=== PATIENT | male | born 1955 | race Caucasian/White ===

== ENCOUNTER 2023-06-17 12:27 | Inpatient (IN) ==
[2023-06-17] MEDS ORDERED: Senna TAB 8.6 mg TAB PO PRN (15:39)
[2023-06-17] MEDS ORDERED: Magnesium Hydroxide LIQ 30 ML UDC PO PRN (15:39)
[2023-06-17] MEDS: HYDROcodone/ACETAMIN 5/325 mg TAB PO PRN ×2 (16:48→21:19)
[2023-06-17] MEDS ORDERED: Heparin 5000 UNITS/ML 1 mL VIAL SUBCUT SCH (21:00)
[2023-06-17] MEDS: Tiotropium Brom/Olodaterol MDI (ACUTE) INH SCH (21:20)
[2023-06-18] MEDS: HYDROcodone/ACETAMIN 5/325 mg TAB PO PRN ×3 (04:55→12:55)
[2023-06-18 06:37] LABS: ABS Eosinophils 0.1 10^3/uL (0.0-0.5); ABS Lymphocytes 1.5 10^3/uL (1.0-4.8); ABS Monocytes 0.4 10^3/uL (0.0-1.1); ABS Neutrophils 2.2 10^3/uL (1.5-7.6); Eosinophil % 3.4 %; Hematocrit 30.7 % (38-53); Hemoglobin 10.6 g/dL (13.2-16.3); Lymphocyte % 35.6 %; Mean Corpuscular Hemoglobin 35.9 pg (27-33); Mean Corpuscular Hgb Conc 34.7 g/dL (31-36); Mean Corpuscular Volume 103.4 fL (80-97); Mean Platelet Volume 7.1 fL (7.5-11.2); Nucleated Red Blood Cells % 0.1 /100 WBC (0.0-0.4); Platelet Count 131 10^3/uL (150-450); Red Blood Count 2.96 10^6/uL (4.06-5.63); White Blood Count 4.3 10^3/uL (3.6-10.2)
[2023-06-18 06:57] LABS: Albumin 3.3 g/dL (3.2-5.2); Albumin/Globulin Ratio 1.5 (1-3); Calcium 8.4 mg/dL (8.6-10.3); Creatinine, Serum 0.54 mg/dL (0.67-1.17); Globulin 2.2 g/dL (2-4); Potassium 4.2 mmol/L (3.5-5.0); Total Bilirubin 0.6 mg/dL (0.2-1.0); Total Protein 5.5 g/dL (6.4-8.9); eGFR CKD-EPI 108.5 (>60)
[2023-06-18] MEDS: Enoxaparin 40 MG/0.4 ML SYR SUBCUT SCH (09:10)
[2023-06-18] MEDS: Tiotropium Brom/Olodaterol MDI (ACUTE) INH SCH (20:17)
[2023-06-19] MEDS: HYDROcodone/ACETAMIN 5/325 mg TAB PO PRN ×3 (03:08→20:13)
[2023-06-19] MEDS: Multivitamins/Minerals TAB PO SCH (08:16)
[2023-06-19] MEDS: Enoxaparin 40 MG/0.4 ML SYR SUBCUT SCH (08:18)
[2023-06-19] MEDS: Tiotropium Brom/Olodaterol MDI (ACUTE) INH SCH (20:09)
[2023-06-20] MEDS: HYDROcodone/ACETAMIN 5/325 mg TAB PO PRN ×3 (02:40→19:13)
[2023-06-20] MEDS: Multivitamins/Minerals TAB PO SCH (07:45)
[2023-06-20] MEDS: Enoxaparin 40 MG/0.4 ML SYR SUBCUT SCH (07:50)
[2023-06-20] MEDS: Tiotropium Brom/Olodaterol MDI (ACUTE) INH SCH (19:33)
[2023-06-21] MEDS: Enoxaparin 40 MG/0.4 ML SYR SUBCUT SCH (07:42)
[2023-06-21] MEDS: Multivitamins/Minerals TAB PO SCH (07:42)
[2023-06-21] MEDS: Tiotropium Brom/Olodaterol MDI (ACUTE) INH SCH (21:08)
[2023-06-22] MEDS: Enoxaparin 40 MG/0.4 ML SYR SUBCUT SCH (09:22)
[2023-06-22] MEDS: Multivitamins/Minerals TAB PO SCH (09:26)
[2023-06-22] MEDS: HYDROcodone/ACETAMIN 5/325 mg TAB PO PRN ×3 (09:32→20:21)
[2023-06-22] MEDS: Tiotropium Brom/Olodaterol MDI (ACUTE) INH SCH (20:22)
[2023-06-23] MEDS: Multivitamins/Minerals TAB PO SCH (07:27)
[2023-06-23] MEDS: Enoxaparin 40 MG/0.4 ML SYR SUBCUT SCH (07:29)
[2023-06-23] MEDS ORDERED: Calcium Carb (TUMS) 500 mg CHEW TAB PO PRN (18:03)
[2023-06-23] MEDS: Tiotropium Brom/Olodaterol MDI (ACUTE) INH SCH (20:59)
[2023-06-24] MEDS: Multivitamins/Minerals TAB PO SCH (07:39)
[2023-06-24] MEDS: HYDROcodone/ACETAMIN 5/325 mg TAB PO PRN ×3 (07:39→23:51)
[2023-06-24] MEDS: Enoxaparin 40 MG/0.4 ML SYR SUBCUT SCH (07:43)
[2023-06-24] MEDS: Tiotropium Brom/Olodaterol MDI (ACUTE) INH SCH (20:05)
[2023-06-25 07:05] LABS: ABS Basophils 0.1 10^3/uL (0.0-0.1); ABS Eosinophils 0.1 10^3/uL (0.0-0.5); ABS Lymphocytes 1.2 10^3/uL (1.0-4.8); ABS Monocytes 0.9 10^3/uL (0.0-1.1); ABS Neutrophils 5.4 10^3/uL (1.5-7.6); ABS Nucleated RBC 0.01 10^3/ul; Eosinophil % 0.9 %; Hematocrit 30.1 % (38-53); Hemoglobin 10.7 g/dL (13.2-16.3); Lymphocyte % 15.6 %; Mean Corpuscular Hemoglobin 36.3 pg (27-33); Mean Corpuscular Hgb Conc 35.7 g/dL (31-36); Mean Corpuscular Volume 101.7 fL (80-97); Mean Platelet Volume 7.4 fL (7.5-11.2); Nucleated Red Blood Cells % 0.1 /100 WBC (0.0-0.4); Platelet Count 338 10^3/uL (150-450); Red Blood Count 2.96 10^6/uL (4.06-5.63); Red Cell Distribution Width 15.3 % (12-17); White Blood Count 7.7 10^3/uL (3.6-10.2)
[2023-06-25 07:15] LABS: Albumin 3.8 g/dL (3.2-5.2); Albumin/Globulin Ratio 1.5 (1-3); Calcium 9.1 mg/dL (8.6-10.3); Creatinine, Serum 0.87 mg/dL (0.67-1.17); Globulin 2.6 g/dL (2-4); Potassium 3.7 mmol/L (3.5-5.0); Total Bilirubin 0.9 mg/dL (0.2-1.0); Total Protein 6.4 g/dL (6.4-8.9)
[2023-06-25] MEDS: Multivitamins/Minerals TAB PO SCH (09:53)
[2023-06-25] MEDS: Enoxaparin 40 MG/0.4 ML SYR SUBCUT SCH (09:56)
[2023-06-25] MEDS: HYDROcodone/ACETAMIN 5/325 mg TAB PO PRN ×2 (17:36→21:56)
[2023-06-25] MEDS: Tiotropium Brom/Olodaterol MDI (ACUTE) INH SCH (21:54)
[2023-06-26 09:07] LABS: ABS Basophils 0.1 10^3/uL (0.0-0.1); ABS Lymphocytes 1.4 10^3/uL (1.0-4.8); ABS Monocytes 0.9 10^3/uL (0.0-1.1); ABS Neutrophils 8.8 10^3/uL (1.5-7.6); Eosinophil % 0.3 %; Hematocrit 33.2 % (38-53); Hemoglobin 11.5 g/dL (13.2-16.3); Lymphocyte % 12.3 %; Mean Corpuscular Hemoglobin 34.9 pg (27-33); Mean Corpuscular Hgb Conc 34.5 g/dL (31-36); Mean Corpuscular Volume 101.2 fL (80-97); Mean Platelet Volume 7.5 fL (7.5-11.2); Platelet Count 471 10^3/uL (150-450); Red Blood Count 3.29 10^6/uL (4.06-5.63); Red Cell Distribution Width 15.1 % (12-17); White Blood Count 11.2 10^3/uL (3.6-10.2)
[2023-06-26 09:39] LABS: Albumin 4.5 g/dL (3.2-5.2); Calcium 9.4 mg/dL (8.6-10.3); Potassium 4.1 mmol/L (3.5-5.0); Total Bilirubin 1.2 mg/dL (0.2-1.0)
[2023-06-26 09:45] LABS: Albumin/Globulin Ratio 1.5 (1-3); Creatinine, Serum 1.03 mg/dL (0.67-1.17); Globulin 3.1 g/dL (2-4); Total Protein 7.6 g/dL (6.4-8.9); eGFR CKD-EPI 79.1 (>60)
[2023-06-26] MEDS: Multivitamins/Minerals TAB PO SCH (10:15)
[2023-06-26] MEDS: Enoxaparin 40 MG/0.4 ML SYR SUBCUT SCH (10:18)
[2023-06-26 10:20] LABS: Direct Bilirubin 0.2 mg/dL (0.03-0.18)
[2023-06-26] MEDS ORDERED: NS 0.9% 1000 ml BAG 1,000 ML IV SCH (10:30)
[2023-06-26] MEDS ORDERED: Piperacillin/Tazobac 3.375 BAG 3.375 GM/100 ML BAG IV ONE (11:26)
[2023-06-26 11:55] LABS: C Reactive Protein 144.47 mg/L (<8.01)
[2023-06-26] MEDS ORDERED: Zosyn per Pharmacy NOTE FOLLOW UP SCH (12:00)
[2023-06-26 12:05] LABS: Urine Appearance Clear; Urine Bilirubin Negative (Negative); Urine Blood Negative (Negative); Urine Color Yellow; Urine Glucose Negative (Negative); Urine Ketones Negative (Negative); Urine Nitrite Negative (Negative); Urine Protein Negative (Negative); Urine Specific Gravity 1.011 (1.002-1.030); Urine Urobilinogen Negative (Negative)
[2023-06-26] MEDS ORDERED: NS 0.9% 1000 ml BAG 1,000 ML IV PRN (12:06)
[2023-06-26 13:34] LABS: Osmolality Serum 275 mOsm/kg (275-295)
[2023-06-26] MEDS: ZOSYN 3.375 GM Q8H per EXTENDED INFUSION IV SCH (15:59)
[2023-06-26 20:19] LABS: Urine Osmo 395 mOsm/kg (150-1150)
[2023-06-26] MEDS: Tiotropium Brom/Olodaterol MDI (ACUTE) INH SCH (20:30)
[2023-06-27] MEDS: ZOSYN 3.375 GM Q8H per EXTENDED INFUSION IV SCH ×2 (00:48→09:31)
[2023-06-27 06:11] VITALS: BP 116/63
[2023-06-27 07:15] LABS: ABS Lymphocytes 0.9 10^3/uL (1.0-4.8); ABS Monocytes 1.1 10^3/uL (0.0-1.1); Eosinophil % 0.2 %; Hematocrit 29.5 % (38-53); Hemoglobin 10.2 g/dL (13.2-16.3); Lymphocyte % 7.5 %; Mean Corpuscular Hemoglobin 35.6 pg (27-33); Mean Corpuscular Hgb Conc 34.8 g/dL (31-36); Mean Corpuscular Volume 102.5 fL (80-97); Mean Platelet Volume 7.4 fL (7.5-11.2); Platelet Count 405 10^3/uL (150-450); Red Blood Count 2.88 10^6/uL (4.06-5.63); Red Cell Distribution Width 14.9 % (12-17)
[2023-06-27 07:18] LABS: Albumin 4.1 g/dL (3.2-5.2); Calcium 8.7 mg/dL (8.6-10.3); Creatinine, Serum 0.87 mg/dL (0.67-1.17); Potassium 4.2 mmol/L (3.5-5.0)
[2023-06-27 07:19] LABS: Albumin/Globulin Ratio 1.4 (1-3); Globulin 2.9 g/dL (2-4); Total Bilirubin 1.2 mg/dL (0.2-1.0)
[2023-06-27] MEDS: Enoxaparin 40 MG/0.4 ML SYR SUBCUT SCH (09:32)
[2023-06-27] MEDS: Multivitamins/Minerals TAB PO SCH (09:32)
[2023-06-27] MEDS ORDERED: LORazepam 2 mg VIAL 1 ml IV PUSH ONE (11:08)
[2023-06-27] MEDS ORDERED: Lorazepam PYXIS KEY PRN (11:08)
== END 2023-06-27 11:35 | disposition short-term general hospital (02) | DRG 560 ==
LOC: PMRU 15:09
PROVIDERS: ADMIT Physical Medicine & Rehabilitation; ATTEND Physical Medicine & Rehabilitation